=== PATIENT | male | born 1950 | race Caucasian/White ===

== ENCOUNTER 2019-05-07 11:50 | Inpatient (IN) ==
[2019-05-07 14:47] VITALS: BMI 31.8
[2019-05-07] MEDS ORDERED: AFLURIA II4 or FLUARIX II4 IM ONE (14:47)
[2019-05-07 14:57] LABS: BASOPHILS # (AUTO) 0.1 X10^3/uL (0.0-0.1); BASOPHILS % (AUTO) 1.3 % (0.2-1.0); EOSINOPHILS # (AUTO) 0.1 x10^3/uL (0.0-0.2); HEMATOCRIT 45.6 % (42.0-54.0); HEMOGLOBIN 16.1 g/dL (13.5-18.0); LYMPHOCYTES # (AUTO) 1.8 X10^3/uL (1.3-2.9); LYMPHOCYTES % (AUTO) 29.9 % (21.0-51.0); MEAN CORPUSCULAR HEMOGLOBIN 30.8 pg (27.0-34.0); MEAN CORPUSCULAR HGB CONC 35.3 g/dL (33.0-35.0); MEAN CORPUSCULAR VOLUME 87.4 fL (80.0-100.0); MONOCYTES # (AUTO) 0.4 x10^3/uL (0.3-0.8); MONOCYTES % (AUTO) 6.3 % (0.0-13.0); NEUTROPHILS # (AUTO) 3.6 x10^3/uL (2.2-4.8); NEUTROPHILS % (AUTO) 60.5 % (42.0-75.0); PLATELET COUNT 189 X10^3/uL (150.0-450.0); RED BLOOD COUNT 5.22 X10^6/uL (4.7-6.0); RED CELL DISTRIBUTION WIDTH 13.8 % (11.6-16.5); WHITE BLOOD COUNT 5.9 X10^3/uL (3.6-10.0)
[2019-05-07] MEDS ORDERED: CATAPRES-TTS-2 TD SCH (15:00)
[2019-05-07 15:17] LABS: ALBUMIN 3.6 g/dL (3.4-5.0); ALKALINE PHOSPHATASE 110 Units/L (46-116); BLOOD UREA NITROGEN 11 mg/dL (7-18); CALCIUM 8.7 mg/dL (8.5-10.1); CARBON DIOXIDE 31.2 mmol/L (21-32); CHLORIDE 100 mmol/L (98-107); CKMB % 1.8 % (<4); COR NA(FOR HYPERGLY) 140 mmol/L (136-145); CREATINE KINASE 62 Units/L (39-308); CREATINE KINASE MB 1.1 ng/mL (0-4.0); SODIUM 138 mmol/L (136-145); TOTAL PROTEIN 7.4 g/dL (6.4-8.2); TROPONIN I < 0.02 ng/mL (0-1.5); eGFR NON BLACK RACES > 60 (>60)
--- NOTE | 2019-05-07 15:33 | CT ---
History: Left arm weakness and confusion and hypertension Study: CT head without contrast. Sagittal and coronal reformations were provided. Dose reduction techniques were utilized. Comparison: None Findings: The ventricles and sulci are prominent without mass effect. There is decreased attenuation at the base of the left frontal lobe. There is no hemorrhage or mass. There is no subdural collection of fluid. The calvarium is intact. The paranasal sinuses are clear. 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
--- NOTE | 2019-05-07 15:34 | RAD ---
History: New inset of hypertension with left arm weakness and confusion Study: Portable AP chest Comparison: None Findings: The lungs are clear and the heart and mediastinum are unremarkable. There is no edema or effusion or congestion. impression: No evidence for acute cardiopulmonary disease Reported By:
[2019-05-07 16:26] LABS: ALANINE AMINOTRANSFERASE 28 Units/L (12-78); ASPARTATE AMINO TRANSFERASE 20 Units/L (15-37)
[2019-05-07] MEDS ORDERED: NORMODYNE INJ 20 MG VIAL IVP PRN (18:14)
[2019-05-07] MEDS ORDERED: NORMODYNE INJ 100 MG VIAL ONE (18:29)
[2019-05-07] MEDS ORDERED: RESTORIL CAP 15 MG PO PRN (18:31)
[2019-05-07 18:58] LABS: CKMB % 1.9 % (<4); CREATINE KINASE 58 Units/L (39-308); CREATINE KINASE MB 1.1 ng/mL (0-4.0); TROPONIN I < 0.02 ng/mL (0-1.5)
[2019-05-07] MEDS ORDERED: MICRO K EXTEN CAP 10 MEQ PO ONE (20:00)
[2019-05-07] MEDS: LOPRESSOR TAB 25 MG PO SCH (20:02)
[2019-05-07] MEDS: NORVASC TAB 5 MG PO SCH (20:02)
[2019-05-07 22:17] LABS: CKMB % 1.8 % (<4); CREATINE KINASE 56 Units/L (39-308); CREATINE KINASE MB < 1.0 ng/mL (0-4.0); TROPONIN I < 0.02 ng/mL (0-1.5)
[2019-05-08 06:18] LABS: BASOPHILS # (AUTO) 0.1 X10^3/uL (0.0-0.1); BASOPHILS % (AUTO) 0.9 % (0.2-1.0); EOSINOPHILS # (AUTO) 0.2 x10^3/uL (0.0-0.2); EOSINOPHILS % (AUTO) 2.9 % (0.9-2.9); HEMATOCRIT 43.2 % (42.0-54.0); HEMOGLOBIN 14.9 g/dL (13.5-18.0); LYMPHOCYTES # (AUTO) 1.2 X10^3/uL (1.3-2.9); LYMPHOCYTES % (AUTO) 19.7 % (21.0-51.0); MEAN CORPUSCULAR HEMOGLOBIN 30.1 pg (27.0-34.0); MEAN CORPUSCULAR HGB CONC 34.6 g/dL (33.0-35.0); MEAN PLATELET VOLUME 8.4 fL (7.4-11.0); MONOCYTES # (AUTO) 0.5 x10^3/uL (0.3-0.8); MONOCYTES % (AUTO) 8.1 % (0.0-13.0); NEUTROPHILS # (AUTO) 4.1 x10^3/uL (2.2-4.8); NEUTROPHILS % (AUTO) 68.4 % (42.0-75.0); PLATELET COUNT 170 X10^3/uL (150.0-450.0); RED BLOOD COUNT 4.96 X10^6/uL (4.7-6.0); RED CELL DISTRIBUTION WIDTH 14.1 % (11.6-16.5)
[2019-05-08 06:33] LABS: ALANINE AMINOTRANSFERASE 23 Units/L (12-78); ALBUMIN 3.3 g/dL (3.4-5.0); ALKALINE PHOSPHATASE 102 Units/L (46-116); ASPARTATE AMINO TRANSFERASE 14 Units/L (15-37); BLOOD UREA NITROGEN 9 mg/dL (7-18); CALCIUM 8.7 mg/dL (8.5-10.1); CARBON DIOXIDE 27.7 mmol/L (21-32); CHLORIDE 103 mmol/L (98-107); COR CA(FOR HYPOALB) 9.3 mg/dL (8.5-10.1); COR NA(FOR HYPERGLY) 141 mmol/L (136-145); CREATININE 0.93 mg/dL (0.70-1.30); SODIUM 139 mmol/L (136-145); TOTAL PROTEIN 6.7 g/dL (6.4-8.2); eGFR NON BLACK RACES > 60 (>60)
[2019-05-08] MEDS ORDERED: K-RIDER 10 MEQ/NS 100 ML 10 MEQ/100 ML BAG IV PRN (06:53)
[2019-05-08] MEDS ORDERED: POTASSIUM CHL 40 MEQ/NS 0.45% 500 ML IV PRN (06:53)
[2019-05-08] MEDS ORDERED: KLOR-CON PO PRN (06:53)
[2019-05-08] MEDS ORDERED: MICRO K EXTEN CAP 10 MEQ PO PRN (06:53)
[2019-05-08] MEDS ORDERED: POTASSIUM CHLORIDE LIQ 20 MEQ UDC PO PRN (06:53)
[2019-05-08] MEDS ORDERED: POTASSIUM CHL 60 MEQ/NS 0.45% 500 ML IV PRN (06:53)
[2019-05-08] MEDS ORDERED: K-DUR TAB 20 MEQ PO PRN (06:53)
[2019-05-08] MEDS ORDERED: PHARMACY CONSULT - DOSE _____ XX SCH (08:00)
[2019-05-08] MEDS: NORVASC TAB 5 MG PO SCH (08:09)
[2019-05-08] MEDS: LOPRESSOR TAB 25 MG PO SCH ×2 (08:13→20:59)
[2019-05-08] MEDS: LOVENOX INJ 40 MG SYR SC SCH (10:40)
[2019-05-08] MEDS: ECOTRIN TAB 325 MG PO SCH (10:50)
[2019-05-08] MEDS ORDERED: NORVASC TAB 5 MG PO NR (11:00)
--- NOTE | 2019-05-08 15:56 | MRI ---
MRI OF THE BRAIN WITHOUT IV CONTRAST CLINICAL INDICATION: Left arm weakness. TECHNIQUE: Pre-contrast T1-w, T2, and diffusion-w sequences of the brain with ADC maps. COMPARISON: Head CT 05/07/2019 FINDINGS: Restricted diffusion can be seen along the lateral cortex of the left temporal lobe on series 502, image 18. There is T2 signal and edema along the underside of the left temporal lobe as well. This region does appear to have some associated T2-1 hyperintensity along the sulci and gyri. There is associated high T2 signal. Diffuse patchy and confluent periventricular and subcortical T2/FLAIR signal with associated volume loss. Age-related, ex-vacuo dilatation of the ventricles and sulci. There are normal signal voids in the larger intracranial vessels. The paranasal sinuses and mastoid air cells are predominantly clear. The marrow signal pattern is within normal limits. IMPRESSION: 1. Late acute ischemia along the lateral cortex of the left temporal lobe. 2. Abnormal T1 and T2 signal within the inferior left temporal lobe without restricted diffusion. 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 It should be noted that neither of these findings would account for patient's reported left-sided arm weakness. Correlate with physical examination. Reported By:
--- NOTE | 2019-05-08 19:26 | VAS ---
CAROTID ULTRASOUND CLINICAL INDICATION: Weakness and facial numbness PROCEDURE: Pulsed wave and color-flow duplex imaging was utilized to evaluate the extracranial carotid arteries. COMPARISON: None FINDINGS: Right carotid: Plaque at the bifurcation. No hemodynamically significant stenosis involving the right carotid artery. The velocities are as follows: Distal CCA peak systolic velocity 75 cm/sec, ICA peak systolic velocity 52 cm/sec. Flow within the right vertebral and right ECA is directed antegrade. ICA/CCA ratio: 0.6 Left carotid: Plaque at the bifurcation. No hemodynamically significant stenosis involving the left carotid artery. The velocities are as follows: Distal CCA peak systolic velocity 78 cm/sec, ICA peak systolic velocity 90 cm/sec. Flow within the left vertebral and left ECA is directed antegrade. ICA/CCA ratio: 1.1 IMPRESSION: 1. No hemodynamically significant stenosis involving either the right or left ICA. 2. Normal peak systolic velocity corresponds to a less than 50% diameter stenosis of the right ICA. 3. Normal peak systolic velocity corresponds to a less than 50% diameter stenosis of the left ICA. Reported By:
[2019-05-08] MEDS: CRESTOR TAB 10 MG PO SCH (20:59)
[2019-05-09 06:16] LABS: BASOPHILS % (AUTO) 0.9 % (0.2-1.0); EOSINOPHILS # (AUTO) 0.2 x10^3/uL (0.0-0.2); HEMATOCRIT 43.9 % (42.0-54.0); HEMOGLOBIN 15.3 g/dL (13.5-18.0); LYMPHOCYTES # (AUTO) 1.7 X10^3/uL (1.3-2.9); LYMPHOCYTES % (AUTO) 40.2 % (21.0-51.0); MEAN CORPUSCULAR HEMOGLOBIN 30.3 pg (27.0-34.0); MEAN CORPUSCULAR HGB CONC 34.8 g/dL (33.0-35.0); MEAN CORPUSCULAR VOLUME 87.1 fL (80.0-100.0); MEAN PLATELET VOLUME 8.5 fL (7.4-11.0); MONOCYTES # (AUTO) 0.4 x10^3/uL (0.3-0.8); MONOCYTES % (AUTO) 9.6 % (0.0-13.0); NEUTROPHILS # (AUTO) 1.8 x10^3/uL (2.2-4.8); NEUTROPHILS % (AUTO) 43.3 % (42.0-75.0); PLATELET COUNT 179 X10^3/uL (150.0-450.0); RED BLOOD COUNT 5.05 X10^6/uL (4.7-6.0); RED CELL DISTRIBUTION WIDTH 13.8 % (11.6-16.5); WHITE BLOOD COUNT 4.1 X10^3/uL (3.6-10.0)
[2019-05-09 07:06] LABS: ALANINE AMINOTRANSFERASE 22 Units/L (12-78); ALBUMIN 3.3 g/dL (3.4-5.0); ALKALINE PHOSPHATASE 101 Units/L (46-116); ASPARTATE AMINO TRANSFERASE 12 Units/L (15-37); BLOOD UREA NITROGEN 10 mg/dL (7-18); CARBON DIOXIDE 29.2 mmol/L (21-32); CHOL/HDL RATIO 6.9 (0.0-5.0); CHOLESTEROL 248 mg/dL (0-200); HDL CHOLESTEROL 36 mg/dL (40-60); TRIGLYCERIDES 292 mg/dL (0-150)
[2019-05-09 07:41] LABS: CALCIUM 9.2 mg/dL (8.5-10.1); CHLORIDE 101 mmol/L (98-107); COR CA(FOR HYPOALB) 9.8 mg/dL (8.5-10.1); COR NA(FOR HYPERGLY) 140 mmol/L (136-145); CREATININE 0.89 mg/dL (0.70-1.30); SODIUM 138 mmol/L (136-145); eGFR NON BLACK RACES > 60 (>60)
[2019-05-09] MEDS: LOPRESSOR TAB 25 MG PO SCH ×2 (09:36→20:18)
[2019-05-09] MEDS: ECOTRIN TAB 325 MG PO SCH (09:36)
[2019-05-09] MEDS: NORVASC TAB 10 MG PO SCH (09:36)
[2019-05-09] MEDS: LOVENOX INJ 40 MG SYR SC SCH (09:37)
--- NOTE | 2019-05-09 11:11 | PCM.PROG ---
Progress Note - Progress Note for Day of Date of Exam: 05/08/19 - Subjective Subjective: WS ADMITTED FOR MALIGNANT HTN, FACIAL WEAKNESS, RULE OUT CVA. TODAY, HE IS ALERT AND ORIENTED, LYING IN BED ON MORNING ROUNDS. HE CONTINUES WITH COMPLAINTS OF GENERALIZED WEAKNESS. ON EXAMINATION, HEART IS REGULAR IN RATE AND RHYTHM. BILATERAL LUNGS ARE NOTED WITH DIMINISHED LUNG SO UNDS THROUGHOUT. ABDOMEN IS ROUND, SOFT, AND NON-TENDER WITH NORMAL BOWEL SOUNDS NOTED IN ALL QUADRANTS. HIS VITALS THIS MORNING ARE: 98.4-71-17-100%-146/70. LABS WERE OBTAINED. ABNORMAL LAB VALUES INCLUDE THE FOLLOWING: POTASSIUM 3.4, GLUCOSE 190, AST 14, ALBUMIN 3.3. CARDIAC ENZYMES WITHIN NORMAL LIMITS. 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 TODAY, WE WILL OBTAIN A BRAIN MRI, ECHO, CAROTID DOPPLER, AND CHECK AN A1C LEVEL. WE WILL START ECOTRIN 325MG PO DAILY, CRESTOR 10MG PO HS, INCREASE NORVASC TO 10MG PO DAILY, CONTINUE WITH CATAPRES PATCH AND METOPROLOL. OTHERWISE, WE PLAN TO FOLLOW UP WITH AM LABS AND CONTINUE TO MONITOR. - Past Medical Family Social History Past Med/Fam/Surg Hx: No changes since H&P Allergies: Allergies No Known Drug Allergies Allergy (Verified 05/07/19 14:19) - Review of Systems ROS: No change since H&P - Vital Signs and I&O's Vital Signs: Temperature 97.8 F Pulse Rate [Left Apical] 60 Respiratory Rate 13 Blood Pressure [Left Arm] 135/69 O2 Sat by Pulse Oximetry 99 Intake and Output: Intake & Output 05/06/19 05/07/19 05/08/19 05/09/19 11:59 11:59 11:59 11:59 Intake Total 870 / 870 1250 / 1250 Output Total 1200 / 1200 1800 / 1800 Balance -330 / -330 -550 / -550 - Physical Exam Oriented: Normal Eyes: Normal Ear: Normal Nose: Normal Throat: Normal Respiratory: Generalized, Diminished Cardiovascular: Normal. negative: S3, S4, Murmur : Normal Auscultation: Bowel Sounds: Normal Palpation: Normal Tenderness: Normal Skin: Normal Musculoskeletal: Normal Psychiatric: Normal Mood Description: Calm Affect: Normal Speech Pattern: Clear, Appropriate - Laboratory and Diagnostics Result Diagrams: 05/09/19 04:55 05/09/19 04:55 Labs: Laboratory WBC 4.1 X10^3/uL (3.6-10.0) 05/09/19 04:55 RBC 5.05 X10^6/uL (4.7-6.0) 05/09/19 04:55 Hgb 15.3 g/dL (13.5-18.0) 05/09/19 04:55 Hct 43.9 % (42.0-54.0) 05/09/19 04:55 MCV 87.1 fL (80.0-100.0) 05/09/19 04:55 MCH 30.3 pg (27.0-34.0) 05/09/19 04:55 MCHC 34.8 g/dL (33.0-35.0) 05/09/19 04:55 RDW 13.8 % (11.6-16.5) 05/09/19 04:55 Plt Count 179 X10^3/uL (150.0-450.0) 05/09/19 04:55 MPV 8.5 fL (7.4-11.0) 05/09/19 04:55 Neut % (Auto) 43.3 % (42.0-75.0) 05/09/19 04:55 Lymph % (Auto) 40.2 % (21.0-51.0) 05/09/19 04:55 [place] % (Auto) 9.6 % (0.0-13.0) 05/09/19 04:55 Eos % (Auto) 6.0 % (0.9-2.9) H 05/09/19 04:55 Baso % (Auto) 0.9 % (0.2-1.0) 05/09/19 04:55 Neut # (Auto) 1.8 x10^3/uL (2.2-4.8) L 05/09/19 04:55 Lymph # (Auto) 1.7 X10^3/uL (1.3-2.9) 05/09/19 04:55 [place] # (Auto) 0.4 x10^3/uL (0.3-0.8) 05/09/19 04:55 Eos # (Auto) 0.2 x10^3/uL (0.0-0.2) 05/09/19 04:55 Baso # (Auto) 0.0 X10^3/uL (0.0-0.1) 05/09/19 04:55 Absolute Nucleated RBC 0.1 /100WBC 05/09/19 04:55 Sodium 138 mmol/L (136-145) 05/09/19 04:55 Corrected Sodium 140 mmol/L (136-145) 05/09/19 04:55 Potassium 4.2 mmol/L (3.5-5.1) 05/09/19 04:55 Chloride 101 mmol/L (98-107) 05/09/19 04:55 Carbon Dioxide 29.2 mmol/L (21-32) 05/09/19 04:55 BUN 10 mg/dL (7-18) 05/09/19 04:55 Creatinine 0.89 mg/dL (0.70-1.30) 05/09/19 04:55 Est GFR (MDRD) Af Amer > 60 (>60) 05/09/19 04:55 Est GFR (MDRD) Non-Af > 60 (>60) 05/09/19 04:55 Glucose 183 mg/dL (65-99) H 05/09/19 04:55 Hemoglobin A1c 9.2 % 05/08/19 05:23 Calcium 9.2 mg/dL (8.5-10.1) 05/09/19 04:55 Corrected Calcium 9.8 mg/dL (8.5-10.1) 05/09/19 04:55 Magnesium 2.0 mg/dL (1.7-2.9) 05/07/19 18:28 Total Bilirubin 0.30 mg/dL (0.2-1.0) 05/09/19 04:55 AST 12 Units/L (15-37) L 05/09/19 04:55 ALT 22 Units/L (12-78) 05/09/19 04:55 Alkaline Phosphatase 101 Units/L (46-116) 05/09/19 04:55 Creatine Kinase 56 Units/L (39-308) 05/07/19 21:50 CK-MB (CK-2) < 1.0 ng/mL (0-4.0) 05/07/19 21:50 CK/CKMB % Calc 1.8 % (<4) 05/07/19 21:50 Troponin I < 0.02 ng/mL (0-1.5) 05/07/19 21:50 Total Protein 7.0 g/dL (6.4-8.2) 05/09/19 04:55 Albumin 3.3 g/dL (3.4-5.0) L 05/09/19 04:55 Globulin 3.7 g/dL (2.5-4.5) 05/09/19 04:55 Albumin/Globulin Ratio 0.9 Ratio (1.1-2.1) L 05/09/19 04:55 Triglycerides 292 mg/dL (0-150) H 05/09/19 04:55 Cholesterol 248 mg/dL (0-200) H 05/09/19 04:55 LDL Cholesterol, Calc 154 mg/dL (0-100) H 05/09/19 04:55 HDL Cholesterol 36 mg/dL (40-60) L 05/09/19 04:55 Cholesterol/HDL Ratio 6.9 (0.0-5.0) H 05/09/19 04:55 - Plan (1) CVA (cerebral vascular accident) Status: Acute Qualifiers: CVA mechanism: unspecified Qualified Code(s): I63.9 - Cerebral infarction, unspecified Plan: OBTAIN BRAIN MRI, ECHO, CAROTID DOPPLER, ASA 325MG PO DAILY, CRESTOR 10MG PO HS, CONTINUE TO MONITOR (2) Generalized weakness Status: Acute (3) Hypertension Status: Acute Qualifiers: Hypertension type: essential hypertension Qualified Code(s): I10 - Essential (primary) hypertension Plan: NORVASC 10MG PO DAILY, METOPROLOL 25MG PO BID, CATAPRES PATCH, CONTINUE TO MONITOR (4) Facial weakness Status: Acute (5) Diabetes mellitus Status: Acute Qualifiers: Diabetes mellitus type: type 2 Diabetes mellitus longterm insulin use: w [facility] terminal block assembler use Diabetes mellitus complication status: without compl ication Qualified Code(s): E11.9 - Type 2 diabetes mellitus without compl ications Plan: MONITOR OTBS
[2019-05-09] MEDS ORDERED: SNACK - Diabetic Appropriate PO SCH (20:00)
[2019-05-09] MEDS: CRESTOR TAB 10 MG PO SCH (20:17)
[2019-05-09] MEDS: HumuLIN R SC PRN (20:58)
[2019-05-10 05:22] LABS: BASOPHILS % (AUTO) 0.8 % (0.2-1.0); EOSINOPHILS # (AUTO) 0.2 x10^3/uL (0.0-0.2); EOSINOPHILS % (AUTO) 4.1 % (0.9-2.9); HEMATOCRIT 42.2 % (42.0-54.0); HEMOGLOBIN 14.8 g/dL (13.5-18.0); LYMPHOCYTES # (AUTO) 1.6 X10^3/uL (1.3-2.9); LYMPHOCYTES % (AUTO) 31.2 % (21.0-51.0); MEAN CORPUSCULAR HEMOGLOBIN 30.2 pg (27.0-34.0); MEAN CORPUSCULAR VOLUME 86.4 fL (80.0-100.0); MEAN PLATELET VOLUME 8.5 fL (7.4-11.0); MONOCYTES # (AUTO) 0.6 x10^3/uL (0.3-0.8); MONOCYTES % (AUTO) 10.9 % (0.0-13.0); NEUTROPHILS # (AUTO) 2.7 x10^3/uL (2.2-4.8); PLATELET COUNT 173 X10^3/uL (150.0-450.0); RED BLOOD COUNT 4.88 X10^6/uL (4.7-6.0); RED CELL DISTRIBUTION WIDTH 13.8 % (11.6-16.5); WHITE BLOOD COUNT 5.2 X10^3/uL (3.6-10.0)
[2019-05-10] MEDS: HumuLIN R SC PRN (05:39)
[2019-05-10 05:40] LABS: ALANINE AMINOTRANSFERASE 19 Units/L (12-78); ALBUMIN 3.1 g/dL (3.4-5.0); ALKALINE PHOSPHATASE 97 Units/L (46-116); ASPARTATE AMINO TRANSFERASE 12 Units/L (15-37); BLOOD UREA NITROGEN 17 mg/dL (7-18); CALCIUM 8.9 mg/dL (8.5-10.1); CARBON DIOXIDE 23.7 mmol/L (21-32); CHLORIDE 100 mmol/L (98-107); COR CA(FOR HYPOALB) 9.6 mg/dL (8.5-10.1); COR NA(FOR HYPERGLY) 137 mmol/L (136-145); CREATININE 0.99 mg/dL (0.70-1.30); SODIUM 135 mmol/L (136-145); TOTAL PROTEIN 6.8 g/dL (6.4-8.2); eGFR NON BLACK RACES > 60 (>60)
[2019-05-10] MEDS ORDERED: GLUCOTROL XL PO SCH (07:00)
[2019-05-10] MEDS: NORVASC TAB 10 MG PO SCH (08:51)
[2019-05-10] MEDS: ECOTRIN TAB 325 MG PO SCH (08:51)
[2019-05-10] MEDS: LOVENOX INJ 40 MG SYR SC SCH (08:51)
[2019-05-10] MEDS: LOPRESSOR TAB 25 MG PO SCH (08:51)
[2019-05-10 10:27] VITALS: BP 125/67
== END 2019-05-10 11:00 | disposition home or self-care (01) | DRG 66 ==
LOC: ICU
PROVIDERS: ADMIT Internal Medicine; ATTEND Internal Medicine
DX: R29.810 Facial weakness; E11.9 Type 2 diabetes mellitus without complications; R26.9 Unspecified abnormalities of gait and mobility; I10 Essential (primary) hypertension; I63.9 Cerebral infarction, unspecified; R48.8 Other symbolic dysfunctions
CPT/HCPCS: 36415; 70450; 70551; 71010; 71045; 80053; 80061; 82550; 82553; 83036; 83735; 84484; 85025; 90674; 90686; 92507; 92523; 93005; 93306; 93880; 97110; 97116; 97162; 97165; A4216; A4222; G0378; J1650; J1815; J3490

== ENCOUNTER 2020-10-12 19:15 | Inpatient (IN) ==
[2020-10-12 19:32] VITALS: BMI 31.5
[2020-10-12] MEDS ORDERED: LASIX IVP STA (21:27)
[2020-10-12] MEDS ORDERED: LASIX ONE (21:28)
--- NOTE | 2020-10-12 21:46 | DR.EXTPAIN ---
HPI Time seen Time Seen by Provider: 10/12/20 21:26 PCP Primary Care Physician: CASSY NAJERA HPI Comment HPI Comment: PATIENT COMPLAINS OF DYSPNEA, MARKED SWELLING IN LEGS FOR 1 WEEK. HAS ASSOCIATED 2 PILLOW ORTHOPNEA, MARKED EXERTIONAL DYSPNEA, DENIES FEVER, COUGH, ARTHRALGIAS AND CHEST PAIN. Complaint/Symptoms Chief Complaint Doctor Comments: SHORTNESS OF BREATH X 1 WEEK Chief Complaint:: PT WENT TO SEE CASSY DANIA IN [place] WITH C/O NO ENERGY, SORE THROAT, SHORTNESS OF BREATH. LABS COLLECTED THIS AM. PT WAS CALLED BACK AROUND 6PM AND ASKED TO COME TO THE HOSPITAL. COVID-19 Coronavirus risk:travel/contact w/high risk person: No Has patient experienced Coronavirus symptoms: No Coronavirus symptoms experienced: Shortness of Breath Nurses notes reviewed Nurses Notes Review: Yes Source History Provided: Patient Mode of arrival Mode of Arrival: Ambulatory Timing Onset of Chief Complaint: 10/09/20 Context History of: None Associated signs and symptoms Associated Signs and Symptoms: Swelling (IN LEGS, WEIGHT GAIN) PMH PMH Past Medical History: Yes Past Medical History: Diabetes, Dyslipidemia and Hypertension Past Surgical History: No Family History History of Family Medical Conditions: Yes Family Medical History: Diabetes Mellitus, [place], Coronary Artery Disease and Hypertension Social History Does patient currently use any type of tobacco product: No Have you used tobacco products in the last 12 months: No Type of Tobacco Use: None Does any household member use tobacco: No Do you use any recreational Drugs:: No Lives With: Alone Lives Where: Home Travel Risk Coronavirus risk:travel/contact w/high risk person: No Has patient experienced Coronavirus symptoms: No Coronavirus symptoms experienced: Shortness of Breath Infectious screening In the last 2 months have you had wt loss of >10#?: NO Have you had fever, night sweats or hemotysis?: No Have you traveled outside the country in the last 6 months?: No Isolation: Standard ROS Review of Systems Constitutional: No Symptoms Reported Eyes: No Symptoms Reported ENTM: No Symptoms Reported Respiratoy: See HPI, Orthopnea and Short of Breath Cardiovascular: See HPI and Edema Gastrointestinal/Abdominal: No Symptoms Reported Genitourinary: No Symptoms Reported Neurological: No Symptoms Reported Musculoskeletal: No Symptoms Reported Integumentary: No Symptoms Reported Hematologic/Lymphatic: No Symptoms Reported Endocrine: No Symptoms Reported Psychiatric: No Symptoms Reported All Other Systems: Reviewed and Negative PE Vital Signs Vitals: Temperature 97.7 F Pulse Rate 92 Respiratory Rate 51 Blood Pressure [Left Arm] 179/89 Blood Pressure 146/68 O2 Sat by Pulse Oximetry 99 General Limitations: No Limitations General Appearance: Alert and In No Apparent Distress Head Head Exam: Normal Inspection Eyes Eye exam: Normal Appearance, PERRL and EOMI ENT ENT Exam: Normal Exam and Normal Oropharynx Neck Neck Exam: Other (JVD AT 40 DEGREES ANGLE OF MANDIBLE) Chest Chest Inspection: Normal Inspection Respiratory Respiratory Exam: Other (BASILAR CRACKLES, MARKED DECREASED BS RIGHT BASE) Respiratory Exam: Left: Clear to Auscultation and Right: Decreased Breath Sounds and Right: Dullness on Percussion Cardiovascular Cardiovascular Exam: Regular Rate and Normal Rhythm Abdominal Exam Abdominal Exam: Normal Inspection, Normal Bowel Sounds and Soft Extremities Extremities Exam: Edema (2+ PITTING EDEMA FEET TO KNEES BILAT) Back Back Exam: Normal Inspection Neurological Neurological Exam: Alert, Oriented X3 and CN II-XII Intact Psychiatric Psychiatric Exam: Normal Affect and Normal Mood Skin Skin Exam: Warm, Dry, Intact and Normal Color MDM Differential Diagnosis Differential Diagnosis: Other (ACUTE CONGESTIVE HEART FAILURE,) COURSE Treatment Treatment: IV LASIX 60MG WITH DIURESIS OF 400ML URINE Reevaluation 1st: Improved (PATIENT STATES HIS BREATHING IS BETTER) ROR Labs Reviewed Laboratory Results Reviewed?: Yes Result Diagrams: 10/12/20 21:46 10/12/20 21:46 Laboratory: WBC 7.1 X10^3/uL (3.6-10.0) 10/12/20 21:46 RBC 4.63 X10^6/uL (4.7-6.0) L 10/12/20 21:46 Hgb 13.4 g/dL (13.5-18.0) L 10/12/20 21:46 Hct 39.4 % (42.0-54.0) L 10/12/20 21:46 MCV 85.1 fL (80.0-100.0) 10/12/20 21:46 MCH 28.9 pg (27.0-34.0) 10/12/20 21:46 MCHC 34.0 g/dL (33.0-35.0) 10/12/20 21:46 RDW 14.0 % (11.6-16.5) 10/12/20 21:46 Plt Count 302 X10^3/uL (150.0-450.0) 10/12/20 21:46 MPV 8.3 fL (7.4-11.0) 10/12/20 21:46 Neut % (Auto) 59.0 % (42.0-75.0) 10/12/20 21:46 Lymph % (Auto) 27.9 % (21.0-51.0) 10/12/20 21:46 [place] % (Auto) 9.7 % (0.0-13.0) 10/12/20 21:46 Eos % (Auto) 2.1 % (0.9-2.9) 10/12/20 21:46 Baso % (Auto) 1.3 % (0.2-1.0) H 10/12/20 21:46 Neut # (Auto) 4.2 x10^3/uL (2.2-4.8) 10/12/20 21:46 Lymph # (Auto) 2.0 X10^3/uL (1.3-2.9) 10/12/20 21:46 [place] # (Auto) 0.7 x10^3/uL (0.3-0.8) 10/12/20 21:46 Eos # (Auto) 0.1 x10^3/uL (0.0-0.2) 10/12/20 21:46 Baso # (Auto) 0.1 X10^3/uL (0.0-0.1) 10/12/20 21:46 Absolute Nucleated RBC 0.1 /100WBC 10/12/20 21:46 PT 13.7 SECONDS (11.8-14.3) 10/12/20 21:46 INR Target Range - 10/12/20 21:46 INR 1.08 (0.8-1.3) 10/12/20 21:46 Sodium 137 mmol/L (136-145) 10/12/20 21:46 Corrected Sodium 138 mmol/L (136-145) 10/12/20 21:46 Potassium 3.2 mmol/L (3.5-5.1) L 10/12/20 21:46 Chloride 101 mmol/L (98-107) 10/12/20 21:46 Carbon Dioxide 24.8 mmol/L (21-32) 10/12/20 21:46 BUN 26 mg/dL (7-18) H 10/12/20 21:46 Creatinine 1.59 mg/dL (0.70-1.30) H 10/12/20 21:46 Est GFR (MDRD) Af Amer 56 (>60) L 10/12/20 21:46 Est GFR (MDRD) Non-Af 46 (>60) L 10/12/20 21:46 Glucose 147 mg/dL (65-99) H 10/12/20 21:46 Calcium 9.8 mg/dL (8.5-10.1) 10/12/20 21:46 Corrected Calcium TNP 10/12/20 21:46 Total Bilirubin 0.60 mg/dL (0.2-1.0) 10/12/20 21:46 AST 17 Units/L (15-37) 10/12/20 21:46 ALT 21 Units/L (12-78) 10/12/20 21:46 Alkaline Phosphatase 123 Units/L (46-116) H 10/12/20 21:46 Troponin I < 0.02 ng/mL (0-1.5) 10/12/20 21:46 B-Natriuretic Peptide 227 pg/mL (0-79) H 10/12/20 21:46 Total Protein 8.5 g/dL (6.4-8.2) H 10/12/20 21:46 Albumin 4.1 g/dL (3.4-5.0) 10/12/20 21:46 Globulin 4.4 g/dL (2.5-4.5) 10/12/20 21:46 Albumin/Globulin Ratio 0.9 Ratio (1.1-2.1) L 10/12/20 21:46 SARS-CoV-2 (PCR) Negative (NEGATIVE) 10/12/20 22:44 Influenza Type A (PCR) Negative (NEGATIVE) 10/12/20 22:44 Influenza Type B (PCR) Negative (NEGATIVE) 10/12/20 22:44 RSV (PCR) Negative (NEGATIVE) 10/12/20 22:44 XRAY XRAY Interpreted by: Radiologist ( THE CTA CHEST CONSISTENT WITH NO PULMONARY EMBOLISM OR AORTIC DISSECTION, MODERATE BILATERAL PLEURAL EFFUSIONS WITH COMPRESSIVE ATELECTASIS WITH NO PULMONARY CONSOLIDATION) X-ray Results: PORTABLE CHEST XRAY CONSISTENT WITH MODERATE RIGHT PLEURAL EFFUSION, NO CONGESTIVE HEART FAILURE EKG Rate: 85 Rhythm: NSR Block: None Hypertrophy: None ST: Normal and Nonsp Opioid Opioid Risk Tool Age (Meño box if 16-45): No History of Preadolescent Sexual Abuse: No Total: 0 Total Score Risk Category: Low Risk Copyright: [employer] TOTH predicting aberrant behaviors Diagnosis Discharge Problem: Acute dyspnea, Acute right-sided heart failure, Pleural effusion on right
[2020-10-12 22:01] LABS: BASOPHILS # (AUTO) 0.1 X10^3/uL (0.0-0.1); BASOPHILS % (AUTO) 1.3 % (0.2-1.0); EOSINOPHILS # (AUTO) 0.1 x10^3/uL (0.0-0.2); EOSINOPHILS % (AUTO) 2.1 % (0.9-2.9); HEMATOCRIT 39.4 % (42.0-54.0); HEMOGLOBIN 13.4 g/dL (13.5-18.0); LYMPHOCYTES % (AUTO) 27.9 % (21.0-51.0); MEAN CORPUSCULAR HEMOGLOBIN 28.9 pg (27.0-34.0); MEAN CORPUSCULAR VOLUME 85.1 fL (80.0-100.0); MEAN PLATELET VOLUME 8.3 fL (7.4-11.0); MONOCYTES # (AUTO) 0.7 x10^3/uL (0.3-0.8); MONOCYTES % (AUTO) 9.7 % (0.0-13.0); NEUTROPHILS # (AUTO) 4.2 x10^3/uL (2.2-4.8); PLATELET COUNT 302 X10^3/uL (150.0-450.0); RED BLOOD COUNT 4.63 X10^6/uL (4.7-6.0); WHITE BLOOD COUNT 7.1 X10^3/uL (3.6-10.0)
[2020-10-12 22:16] LABS: ALANINE AMINOTRANSFERASE 21 Units/L (12-78); ALBUMIN 4.1 g/dL (3.4-5.0); ALKALINE PHOSPHATASE 123 Units/L (46-116); ASPARTATE AMINO TRANSFERASE 17 Units/L (15-37); BLOOD UREA NITROGEN 26 mg/dL (7-18); CALCIUM 9.8 mg/dL (8.5-10.1); CARBON DIOXIDE 24.8 mmol/L (21-32); CHLORIDE 101 mmol/L (98-107); COR NA(FOR HYPERGLY) 138 mmol/L (136-145); CREATININE 1.59 mg/dL (0.70-1.30); SODIUM 137 mmol/L (136-145); TOTAL PROTEIN 8.5 g/dL (6.4-8.2); TROPONIN I < 0.02 ng/mL (0-1.5); eGFR NON BLACK RACES 46 (>60)
[2020-10-13] MEDS ORDERED: K-DUR TAB 20 MEQ PO STA (02:14)
[2020-10-13] MEDS ORDERED: K-DUR TAB 20 MEQ PO ONE ×2 (02:40→08:00)
--- NOTE | 2020-10-13 03:09 | RAD ---
PROCEDURE: Chest X-ray 1 View .HISTORY: PT WENT TO SEE CASSY NAJERA IN [place] WITH C/O NO ENERGY, SORE THROAT, SHORTNESS OF BREATH. LABS COLLECTED THIS AM. PT WAS CALLED BACK AROUND 6PM AND ASKED TO COME TO THE HOSPITAL. .TECHNIQUE: AP view .COMPARISON: 10/12/2020 chest x-ray done at 1:25 p.m..TECHNICAL QUALITY: Satisfactory .FINDINGS:Normal size heart .Mediastinum and hilar regions show no masses or lymphadenopathy .Normal central vascularity .Unchanged right pleural effusion laterally. No pulmonary consolidation, masses, or pneumothorax.No acute bony abnormality .IMPRESSION:1. Unchanged right pleural effusion.2. No other evidence of active disease.Electronically signed by: Lavell Baker (Oct 13, 2020 03:07:29)
--- NOTE | 2020-10-13 03:46 | CT ---
PROCEDURE: CTA Chest .HISTORY: DYSPNEA AND ELEVATED D-DIMER .TECHNIQUE: Axial images were performed through the chest with the administration of IV contrast with multiplanar reformations . 3D and MIPS reconstructions were performed and reviewed. Dose reduction techniques including Automated Exposure Control (AEC) and adjustment of mA and kV were utilized .COMPARISON: None .TECHNICAL QUALITY: Satisfactory .FINDINGS:Normal aorta with no atherosclerosis, aneurysm, or dissection.No evidence of pulmonary embolus.Mediastinum and hilar regions show no masses or lymphadenopathy.Normal size heart with no pericardial fluid.Moderate bilateral pleural effusions with compressive atelectasis lung bases. No pulmonary consolidation or masses.Visualized upper abdomen is unremarkable.No acute bony abnormality.IMPRESSION:1. No pulmonary embolus or aortic dissection.2. Moderate bilateral pleural effusions with compressive atelectasis with no pulmonary consolidation.Electronically signed by: Lavell Baker (Oct 13, 2020 03:44:00)
[2020-10-13] MEDS ORDERED: ASPIRIN ONE (04:53)
[2020-10-13] MEDS: ECOTRIN TAB 325 MG PO SCH (05:06)
[2020-10-13 05:31] LABS: CKMB % 1.7 % (<4); CREATINE KINASE 277 Units/L (39-308); TROPONIN I < 0.02 ng/mL (0-1.5)
[2020-10-13 05:38] LABS: CREATINE KINASE MB 4.6 ng/mL (0-4.0)
[2020-10-13 07:25] LABS: ALANINE AMINOTRANSFERASE 18 Units/L (12-78); ALBUMIN 3.7 g/dL (3.4-5.0); ALKALINE PHOSPHATASE 110 Units/L (46-116); ASPARTATE AMINO TRANSFERASE 21 Units/L (15-37); BLOOD UREA NITROGEN 23 mg/dL (7-18); CALCIUM 9.2 mg/dL (8.5-10.1); CARBON DIOXIDE 21.7 mmol/L (21-32); CHLORIDE 101 mmol/L (98-107); COR NA(FOR HYPERGLY) 139 mmol/L (136-145); CREATININE 1.41 mg/dL (0.70-1.30); SODIUM 137 mmol/L (136-145); TOTAL PROTEIN 7.7 g/dL (6.4-8.2); eGFR NON BLACK RACES 53 (>60)
[2020-10-13] MEDS ORDERED: NORVASC TAB 5 MG ONE (08:00)
[2020-10-13] MEDS ORDERED: LASIX IVP ONE ×2 (08:00→16:47)
[2020-10-13] MEDS ORDERED: LOPRESSOR TAB 50 MG ONE (08:00)
[2020-10-13] MEDS ORDERED: COLACE CAP 100 MG PO ONE (08:01)
[2020-10-13] MEDS: GLUCOTROL XL 24-HR PO SCH (08:25)
[2020-10-13] MEDS: K-DUR TAB 20 MEQ PO SCH ×2 (08:25→20:27)
[2020-10-13] MEDS: LASIX IVP SCH ×2 (08:25→16:51)
[2020-10-13] MEDS: LOPRESSOR TAB 50 MG PO SCH ×2 (08:35→20:27)
[2020-10-13] MEDS: COLACE CAP 100 MG PO SCH (08:36)
[2020-10-13] MEDS: NORVASC TAB 10 MG PO SCH (08:36)
[2020-10-13 11:33] LABS: CKMB % 1.7 % (<4); CREATINE KINASE 326 Units/L (39-308); TROPONIN I < 0.02 ng/mL (0-1.5)
[2020-10-13 11:36] LABS: CREATINE KINASE MB 5.6 ng/mL (0-4.0)
--- NOTE | 2020-10-13 14:40 | DR.H&P ---
H&P - History & Physical for Day of: H&P Date: 10/13/20 - Chief Complaint Chief Complaint: SOB, LOWER EXTREMITY SWELLING, WEAKNESS, SORE THROAT - History of Present Illness History of Present Illness: IS A 70 YEAR OLD PATIENT OF OURS WHO PRESENTED TO THE ER WITH COMPLAINTS OF SHORTNESS OF BREATH, SWELLING TO LOWER EXTREMITIES, SEVERE WEAKNESS, AND SORE THROAT FOR THE PAST WEEK. HE REPORTS BEING UNABLE TO LIE FLAT AND HAVING TO USE TWO PILLOWS AT NIGHT. DYSPNEA IS WORSE WITH EXERTION. HE DOES ADMIT TO CHEST DISCOMFORT AND COUGH AT TIMES, BUT DENIES FEVER. PMH INCLUDES HYPERLIPIDEMIA, HTN, DM II. EXAMINATION REVEALED 1+ PITTING EDEMA TO LOWER EXTREMITIES. DIMINISHED LUNG SOUNDS NOTED TO AUSCULTATION. LABS WERE OBTAINED EARLIER IN THE DAY AND REVEALED THE FOLLOWING ABNORMAL VALUES: HCT 39.7, D-DIMER 1.12, POTASSIUM 3.4, BUN 20, CREATININE 1.36, GLUCOSE 153, ALK PHOS 121, CRP 5.90, TOTAL PROTEIN 8.3, CK-MB 4.6. AN ABG WAS OBTAINED AND REVEALED: PH 7.450, PC02 38, P02 78, HC03 26.4, 02 SAT 96, BASE EXCESS 2.4, A-A GRADIENT -118, FI02 1.0. COVID-19, INFLUENZA, AND RSV NEGATIVE. A CHEST XRAY WAS OBTAINED AND REVEALED: No definite acute infiltrates. Moderate right pleural effusion. EKG REVEALED: SINUS RHYTHM WITH HR 85. A CHEST CTA WAS OBTAINED AND REVEALED: 1. No pulmonary embolus or aortic dissection. 2. Moderate bilateral pleural effusions with compressive atelectasis with no pulmonary consolidation. HE WAS GIVEN LASIX 60MG IV X 1, K-DUR 40MEQ PO X 1, AND NORVASC 5MG PO X 1 IN THE ER. HE REPORTED ONLY SLIGHT IMPROVEMENT IN SYMPTOMS. HE WAS ADMITTED TO THE HOSPITAL FOR FURTHER EVALUATION AND TREATMENT OF ACUTE DYSPNEA AND CHF. HE WAS STARTED ON LASIX 40MG IV BID, OTBS ACHS, AND HIS HOME MEDICATIONS OF ASPIRIN 325MG PO DAILY, COLACE 100MG PO DAILY, ROSUVASTATIN 10MG PO HS, METOPROLOL 50MG PO BID, GLIPIZIDE 2.5MG PO DAILY, AND NORVASC 10MG PO DAILY. WE PLAN TO OBTAIN AN ECHO, CEA LEVEL, PSA LEVEL, AND RESTRICT FLUIDS TO LESS THAN 1 LITER/DAY. OTHERWISE, WE WILL FOLLOW UP WITH AM LABS AND CHEST XRAY AND CONTINUE TO MONITOR. TIME SPENT ON CLINICAL ASSESSMENT, REVIEWING LABS AND IMAGING, DECISION MAKING, AND DOCUMENTATION GREATER THAN 75 MINUTES. - Past Medical History Past Medical History: Hypertension, Dyslipidemia, Diabetes - Family History Family Medical History: Diabetes Mellitus, [place], Coronary Artery Disease, Hypertension - Social History Does patient currently use any type of tobacco product: No Have you used tobacco products in the last 12 months: No Type of Tobacco Use: None Does any household member use tobacco: No Alcohol Use: None Drug Use: None - Medications Home Medications: No Known Drug Allergies Allergy (Verified 05/07/19 14:19) CONTINUE taking the following medications docusate sodium 100 mg PO DAILY 10/13/20 [History] metoprolol tartrate 50 mg PO BID 10/13/20 [History] - Review of Systems Constitutional: Weakness Eyes: No Symptoms Reported ENT: No Symptoms Reported Respiratory: Cough, Shortness of Breath Cardiovascular: Chest Pain, Edema (LOWER EXTREMITY SWELLING ) Gastrointestinal: No Symptoms Reported Genitourinary: No Symptoms Reported Musculoskeletal: No Symptoms Reported Skin: No Symptoms Reported Neurological: Weakness - Physical Exam Vital Signs: Temperature 97.9 F Pulse Rate 62 Respiratory Rate 28 Blood Pressure [Left Arm] 134/61 Blood Pressure 119/57 O2 Sat by Pulse Oximetry 97 Oriented: Normal Eyes: Normal Ear: Normal Nose: Normal Throat: Normal Respiratory: Diminished Throughout Cardiovascular: Edema (BILATERAL LOWER EXTREMITY 1+ PITTING EDEMA ) : Normal Auscultation: Bowel Sounds: Normal Palpation: Normal Tenderness: Normal Skin: Normal Musculoskeletal: Normal Psychiatric: Normal Mood Description: Calm Affect: Normal Speech Pattern: Clear - Assessment/Plan (1) CHF (congestive heart failure) Qualifiers: Heart failure type: unspecified Heart failure chronicity: acute Qualified Code(s): I50.9 - Heart failure, unspecified Status: Acute Plan: ADMIT, SUPPLEMENTAL OXYGEN, LASIX 40MG IV BID, OTBS ACHS, AND HIS HOME MEDICATIONS OF ASPIRIN 325MG PO DAILY, COLACE 100MG PO DAILY, ROSUVASTATIN 10MG PO HS, METOPROLOL 50MG PO BID, GLIPIZIDE 2.5MG PO DAILY, AND NORVASC 10MG PO DAILY. ECHO, CEA LEVEL, PSA LEVEL, AND RESTRICT FLUIDS TO LESS THAN 1 LITER/DAY. (2) Acute dyspnea Status: Acute - Allergies Allergies/Adverse Reactions: Allergies Allergy/AdvReac Type Severity Reaction Status Date / Time No Known Drug Allergies Allergy Verified 05/07/19 14:19
[2020-10-13 19:06] LABS: CKMB % 1.7 % (<4); CREATINE KINASE 380 Units/L (39-308); TROPONIN I < 0.02 ng/mL (0-1.5)
[2020-10-13 19:08] LABS: CREATINE KINASE MB 6.5 ng/mL (0-4.0)
[2020-10-13] MEDS: CRESTOR TAB 10 MG PO SCH (20:27)
[2020-10-14 05:46] LABS: ABG ALLEN TEST POS; ABG BASE EXCESS 1.3 mmol/L (-2.0-2.0); ABG HCO3 25.9 mmol/L (22-26)
[2020-10-14 06:01] LABS: BILIRUBIN,URINE NEGATIVE (NEGATIVE); BLOOD/HEMOGLOBIN,URINE 3+ (NEGATIVE); GLUCOSE, URINE NEGATIVE (NEGATIVE); KETONES,URINE 2+ (NEGATIVE); LEUKOCYTE ESTERASE ,URINE 1+ (NEGATIVE); NITRITES,URINE NEGATIVE (NEGATIVE); PROTEIN,URINE 2+ (NEGATIVE); UROBILINOGEN,URINE NORMAL (NORMAL)
[2020-10-14 06:02] LABS: APPEARANCE,URINE CLEAR (CLEAR); COLOR,URINE YELLOW (YELLOW)
[2020-10-14 06:08] LABS: BASOPHILS # (AUTO) 0.1 X10^3/uL (0.0-0.1); BASOPHILS % (AUTO) 0.9 % (0.2-1.0); EOSINOPHILS # (AUTO) 0.2 x10^3/uL (0.0-0.2); EOSINOPHILS % (AUTO) 2.3 % (0.9-2.9); HEMATOCRIT 35.9 % (42.0-54.0); HEMOGLOBIN 12.3 g/dL (13.5-18.0); LYMPHOCYTES # (AUTO) 1.6 X10^3/uL (1.3-2.9); LYMPHOCYTES % (AUTO) 21.9 % (21.0-51.0); MEAN CORPUSCULAR HEMOGLOBIN 29.2 pg (27.0-34.0); MEAN CORPUSCULAR HGB CONC 34.3 g/dL (33.0-35.0); MEAN CORPUSCULAR VOLUME 85.2 fL (80.0-100.0); MEAN PLATELET VOLUME 8.7 fL (7.4-11.0); MONOCYTES # (AUTO) 0.6 x10^3/uL (0.3-0.8); MONOCYTES % (AUTO) 8.4 % (0.0-13.0); NEUTROPHILS # (AUTO) 4.8 x10^3/uL (2.2-4.8); NEUTROPHILS % (AUTO) 66.5 % (42.0-75.0); PLATELET COUNT 243 X10^3/uL (150.0-450.0); RED BLOOD COUNT 4.21 X10^6/uL (4.7-6.0); RED CELL DISTRIBUTION WIDTH 13.8 % (11.6-16.5); WHITE BLOOD COUNT 7.2 X10^3/uL (3.6-10.0)
[2020-10-14 06:09] LABS: BACTERIA,URINE 1+ /HPF (NEGATIVE); RBC,URINE 0-2 /HPF (0-3); SQUAMOUS EPITHELIAL CELL,UR MODERATE /HPF (NEGATIVE)
--- NOTE | 2020-10-14 06:09 | RAD ---
HISTORYSOBSTUDYCHEST, 1 [id number]/22/2021.TECHNIQUEAP view of the chestFINDINGSThe cardiac and mediastinal contours appear stable. Stable moderate right pleural effusion. No discernible pneumothorax. Associated right base opacity likely atelectasis.IMPRESSIONNo significant change.Electronically signed by: Dashawn Courtney (Oct 14, 2020 06:07:09)
[2020-10-14] MEDS: LASIX IVP SCH ×3 (06:24→16:25)
[2020-10-14 06:33] LABS: ALANINE AMINOTRANSFERASE 18 Units/L (12-78); ALBUMIN 3.9 g/dL (3.4-5.0); ALKALINE PHOSPHATASE 112 Units/L (46-116); ASPARTATE AMINO TRANSFERASE 26 Units/L (15-37); BLOOD UREA NITROGEN 25 mg/dL (7-18); CALCIUM 9.5 mg/dL (8.5-10.1); CARBON DIOXIDE 25.1 mmol/L (21-32); CHLORIDE 101 mmol/L (98-107); COR NA(FOR HYPERGLY) 141 mmol/L (136-145); SODIUM 140 mmol/L (136-145); TOTAL PROTEIN 8.1 g/dL (6.4-8.2); eGFR NON BLACK RACES 58 (>60)
[2020-10-14 07:07] LABS: CREATINE KINASE 419 Units/L (39-308); TROPONIN I < 0.02 ng/mL (0-1.5)
[2020-10-14 07:12] LABS: CKMB % 1.6 % (<4); CREATINE KINASE MB 6.6 ng/mL (0-4.0)
[2020-10-14] MEDS: GLUCOTROL XL 24-HR PO SCH (08:00)
[2020-10-14] MEDS ORDERED: PULMICORT NEB TX 0.5 MG NEB ONE (09:02)
[2020-10-14] MEDS: PULMICORT NEB TX 0.5 MG NEB SCH ×2 (09:03→20:10)
[2020-10-14] MEDS: XOPENEX 1.25 MG/3 ML NEBULE NEB SCH ×3 (09:48→20:10)
[2020-10-14] MEDS: LOPRESSOR TAB 50 MG PO SCH ×2 (10:00→20:48)
[2020-10-14] MEDS: NORVASC TAB 10 MG PO SCH (10:00)
[2020-10-14] MEDS: COLACE CAP 100 MG PO SCH (10:29)
[2020-10-14] MEDS: ECOTRIN TAB 325 MG PO SCH (10:29)
[2020-10-14] MEDS: K-DUR TAB 20 MEQ PO SCH ×2 (10:30→20:48)
--- NOTE | 2020-10-14 13:15 | PCM.PROG ---
Progress Note - Progress Note for Day of Date of Exam: 10/14/20 - Subjective Subjective: WAS ADMITTED FOR CHF AND ACUTE DYSPNEA. TODAY, HE IS ALERT AND ORIENTED, LYING IN BED ON MORNING ROUNDS. HE CONTINUES WITH COMPLAINTS OF SHORTNESS OF BREATH THIS MORNING. HE ALSO REPORTS INTERMITTENT, NON-PRODUCTIVE COUGH. ON EXAMINATION, HEART IS REGULAR IN RATE AND RHYTHM. BILATERAL LUNGS ARE NOTED WITH DIMINISHED LUNG SOUNDS THROUGHOUT. ABDOMEN IS ROUND, SOFT, AND NON- TENDER WITH NORMAL BOWEL SOUNDS NOTED IN ALL QUADRANTS. LOWER EXTREMITIES CONTINUE WITH 1+ PITTING EDEMA. HER VITALS THIS MORNING ARE: 97.7-84-28-96%-151/67. LABS WERE OBTAINED. ABNORMAL LAB VALUES INCLUDE THE FOLLOWING: RBC 4.63, HGB 13.4, HCT 39.4, D-DIMER 1.30, BUN 25, GLUCOSE 123, CREATINE KINASE 419, CK-MB 6.6, BNP 293. A CHEST XRAY WAS OBTAINED AND REVEALED: The cardiac and mediastinal contours appear stable. Stable moderate right pleural effusion. No discernible pneumothorax. Associated right base opacity likely atelectasis. ECHO REVEALED AN EJECTION FRACTION OF 60%, GRADE 1 IMPAIRED DIASTOLIC DYSFUNCTION. HE IS CURRENTLY RECEIVING LASIX 40MG IV BID, OTBS ACHS, ASPIRIN 325MG PO DAILY, COLACE 100MG PO DAILY, ROSUVASTATIN 10MG PO HS, METOPROLOL 50MG PO BID, GLIPIZIDE 2.5MG PO DAILY, AND NORVASC 10MG PO DAILY. TODAY, WE WILL ADD PULMICORT NEB TX BID AND XOPENEX NEB TX TID. OTHERWISE, WE WILL CONTINUE WITH CURRENT PLAN OF CARE. WE PLAN TO FOLLOW UP WITH AM LABS AND CONTINUE TO MONITOR. TIME SPENT ON CLINICAL ASSESSMENT, REVIEWING LABS AND IMAGING, DECISION MAKING, AND DOCUMENTATION GREATER THAN 75 MINUTES. - Past Medical Family Social History Past Med/Fam/Surg Hx: No changes since H&P Allergies: Allergies No Known Drug Allergies Allergy (Verified 05/07/19 14:19) - Review of Systems ROS: No change since H&P - Vital Signs and I&O's Vital Signs: Temperature 98.4 F Pulse Rate 77 Respiratory Rate 30 Blood Pressure [Left Arm] 134/61 Blood Pressure 162/72 O2 Sat by Pulse Oximetry 96 Intake and Output: Intake & Output 02/22/21 02/23/21 02/24/21 02/25/21 11:59 11:59 11:59 11:59 Intake Total 550 / 550 990 / 990 Output Total 300 / 300 1425 / 1425 Balance 250 / 250 -435 / -435 - Physical Exam Oriented: Normal Eyes: Normal Ear: Normal Nose: Normal Throat: Normal Respiratory: Diminished Cardiovascular: Edema (BILATERAL LOWER EXTREMITY 1+ PITTING EDEMA ) : Normal Auscultation: Bowel Sounds: Normal Palpation: Normal Tenderness: Normal Skin: Normal Musculoskeletal: Normal Psychiatric: Normal Mood Description: Calm Affect: Normal Speech Pattern: Clear - Laboratory and Diagnostics Result Diagrams: 10/14/20 05:18 10/14/20 05:18 Labs: Laboratory WBC 7.2 X10^3/uL (3.6-10.0) 10/14/20 05:18 RBC 4.21 X10^6/uL (4.7-6.0) L 10/14/20 05:18 Hgb 12.3 g/dL (13.5-18.0) L 10/14/20 05:18 Hct 35.9 % (42.0-54.0) L 10/14/20 05:18 MCV 85.2 fL (80.0-100.0) 10/14/20 05:18 MCH 29.2 pg (27.0-34.0) 10/14/20 05:18 MCHC 34.3 g/dL (33.0-35.0) 10/14/20 05:18 RDW 13.8 % (11.6-16.5) 10/14/20 05:18 Plt Count 243 X10^3/uL (150.0-450.0) 10/14/20 05:18 MPV 8.7 fL (7.4-11.0) 10/14/20 05:18 Neut % (Auto) 66.5 % (42.0-75.0) 10/14/20 05:18 Lymph % (Auto) 21.9 % (21.0-51.0) 10/14/20 05:18 [place] % (Auto) 8.4 % (0.0-13.0) 10/14/20 05:18 Eos % (Auto) 2.3 % (0.9-2.9) 10/14/20 05:18 Baso % (Auto) 0.9 % (0.2-1.0) 10/14/20 05:18 Neut # (Auto) 4.8 x10^3/uL (2.2-4.8) 10/14/20 05:18 Lymph # (Auto) 1.6 X10^3/uL (1.3-2.9) 10/14/20 05:18 [place] # (Auto) 0.6 x10^3/uL (0.3-0.8) 10/14/20 05:18 Eos # (Auto) 0.2 x10^3/uL (0.0-0.2) 10/14/20 05:18 Baso # (Auto) 0.1 X10^3/uL (0.0-0.1) 10/14/20 05:18 Absolute Nucleated RBC 0.1 /100WBC 10/14/20 05:18 PT 13.7 SECONDS (11.8-14.3) 10/12/20 21:46 INR Target Range - 10/12/20 21:46 INR 1.08 (0.8-1.3) 10/12/20 21:46 D-Dimer 1.30 ug/ml (0.0-0.57) H* 10/14/20 05:18 Sample Site Rr 10/14/20 05:30 ABG pH 7.420 (7.35-7.45) 10/14/20 05:30 ABG pCO2 40.0 mmHg (35.0-45.0) 10/14/20 05:30 ABG pO2 82.0 mmHg (80.0-100.0) 10/14/20 05:30 ABG HCO3 25.9 mmol/L (22-26) 10/14/20 05:30 ABG O2 Saturation 96.0 % (90-100) 10/14/20 05:30 ABG Base Excess 1.3 mmol/L (-2.0-2.0) 10/14/20 05:30 Dev Test Pos 10/14/20 05:30 A-a Gradient 225.0 mmHg 10/14/20 05:30 FiO2 50.0 10/14/20 05:30 Blood Gas Comments Gemma well 10/14/20 05:30 Sodium 140 mmol/L (136-145) 10/14/20 05:18 Corrected Sodium 141 mmol/L (136-145) 10/14/20 05:18 Potassium 3.9 mmol/L (3.5-5.1) 10/14/20 05:18 Chloride 101 mmol/L (98-107) 10/14/20 05:18 Carbon Dioxide 25.1 mmol/L (21-32) 10/14/20 05:18 BUN 25 mg/dL (7-18) H 10/14/20 05:18 Creatinine 1.30 mg/dL (0.70-1.30) 10/14/20 05:18 Est GFR (MDRD) Af Amer > 60 (>60) 10/14/20 05:18 Est GFR (MDRD) Non-Af 58 (>60) L 10/14/20 05:18 Glucose 123 mg/dL (65-99) H 10/14/20 05:18 POC Glucose (mg/dL) 176 mg/dL (65-99) H 10/14/20 11:56 Calcium 9.5 mg/dL (8.5-10.1) 10/14/20 05:18 Corrected Calcium TNP 10/14/20 05:18 Magnesium 2.3 mg/dL (1.7-2.9) 10/14/20 05:18 Total Bilirubin 0.80 mg/dL (0.2-1.0) 10/14/20 05:18 AST 26 Units/L (15-37) 10/14/20 05:18 ALT 18 Units/L (12-78) 10/14/20 05:18 Alkaline Phosphatase 112 Units/L (46-116) 10/14/20 05:18 Creatine Kinase 419 Units/L (39-308) H 10/14/20 05:18 CK-MB (CK-2) 6.6 ng/mL (0-4.0) H* 10/14/20 05:18 CK/CKMB % Calc 1.6 % (<4) 10/14/20 05:18 Troponin I < 0.02 ng/mL (0-1.5) 10/14/20 05:18 B-Natriuretic Peptide 293 pg/mL (0-79) H 10/14/20 05:18 Total Protein 8.1 g/dL (6.4-8.2) 10/14/20 05:18 Albumin 3.9 g/dL (3.4-5.0) 10/14/20 05:18 Globulin 4.2 g/dL (2.5-4.5) 10/14/20 05:18 Albumin/Globulin Ratio 0.9 Ratio (1.1-2.1) L 10/14/20 05:18 Total PSA 2.01 ng/mL (0.13-4.0) 10/13/20 10:32 Specimen Type Catherized urine 10/14/20 05:45 Urine Color Yellow (YELLOW) 10/14/20 05:45 Urine Appearance Clear (CLEAR) 10/14/20 05:45 Urine pH 5.0 (5.0 - 8.0) 10/14/20 05:45 Ur Specific [place] 1.020 (1.000-1.030) 10/14/20 05:45 Urine Protein 2+ (NEGATIVE) 10/14/20 05:45 Urine Glucose (UA) Negative (NEGATIVE) 10/14/20 05:45 Urine Ketones 2+ (NEGATIVE) 10/14/20 05:45 Urine Occult Blood 3+ (NEGATIVE) 10/14/20 05:45 Urine Nitrite Negative (NEGATIVE) 10/14/20 05:45 Urine Bilirubin Negative (NEGATIVE) 10/14/20 05:45 Urine Urobilinogen Normal (NORMAL) 10/14/20 05:45 Ur Leukocyte Esterase 1+ (NEGATIVE) 10/14/20 05:45 Urine RBC 0-2 /HPF (0-3) 10/14/20 05:45 Urine WBC 3-5 /HPF (0-5) 10/14/20 05:45 Ur Squamous Epith Cells Moderate /HPF (NEGATIVE) 10/14/20 05:45 Urine Bacteria 1+ /HPF (NEGATIVE) 10/14/20 05:45 Ur Culture Indicated? No/not indicated 10/14/20 05:45 SARS-CoV-2 (PCR) Negative (NEGATIVE) 10/12/20 22:44 Influenza Type A (PCR) Negative (NEGATIVE) 10/12/20 22:44 Influenza Type B (PCR) Negative (NEGATIVE) 10/12/20 22:44 RSV (PCR) Negative (NEGATIVE) 10/12/20 22:44 - Plan (1) CHF (congestive heart failure) Status: Acute Qualifiers: Heart failure type: unspecified Heart failure chronicity: acute Qualified Code(s): I50.9 - Heart failure, unspecified Plan: SUPPLEMENTAL OXYGEN, LASIX 40MG IV BID, OTBS ACHS, AND HIS HOME MEDICATIONS OF ASPIRIN 325MG PO DAILY, COLACE 100MG PO DAILY, ROSUVASTATIN 10MG PO HS, METOPROLOL 50MG PO BID, GLIPIZIDE 2.5MG PO DAILY, AND NORVASC 10MG PO DAILY. ECHO, CEA LEVEL, PSA LEVEL, AND RESTRICT FLUIDS TO LESS THAN 1 LITER/DAY. (2) Acute dyspnea Status: Acute
[2020-10-14] MEDS: CRESTOR TAB 10 MG PO SCH (20:48)
[2020-10-15] MEDS: GLUCOTROL XL 24-HR PO SCH (06:02)
[2020-10-15 06:07] LABS: BASOPHILS # (AUTO) 0.1 X10^3/uL (0.0-0.1); BASOPHILS % (AUTO) 0.9 % (0.2-1.0); EOSINOPHILS # (AUTO) 0.1 x10^3/uL (0.0-0.2); EOSINOPHILS % (AUTO) 1.6 % (0.9-2.9); HEMATOCRIT 33.7 % (42.0-54.0); HEMOGLOBIN 11.4 g/dL (13.5-18.0); LYMPHOCYTES # (AUTO) 1.5 X10^3/uL (1.3-2.9); LYMPHOCYTES % (AUTO) 20.1 % (21.0-51.0); MEAN CORPUSCULAR HEMOGLOBIN 28.9 pg (27.0-34.0); MEAN CORPUSCULAR HGB CONC 33.8 g/dL (33.0-35.0); MEAN CORPUSCULAR VOLUME 85.5 fL (80.0-100.0); MEAN PLATELET VOLUME 8.9 fL (7.4-11.0); MONOCYTES # (AUTO) 0.7 x10^3/uL (0.3-0.8); MONOCYTES % (AUTO) 9.4 % (0.0-13.0); PLATELET COUNT 240 X10^3/uL (150.0-450.0); RED BLOOD COUNT 3.94 X10^6/uL (4.7-6.0); WHITE BLOOD COUNT 7.4 X10^3/uL (3.6-10.0)
[2020-10-15] MEDS: XOPENEX 1.25 MG/3 ML NEBULE NEB SCH ×3 (06:30→20:40)
[2020-10-15 06:34] LABS: ALANINE AMINOTRANSFERASE 23 Units/L (12-78); ALBUMIN 3.7 g/dL (3.4-5.0); ALKALINE PHOSPHATASE 103 Units/L (46-116); ASPARTATE AMINO TRANSFERASE 23 Units/L (15-37); BLOOD UREA NITROGEN 31 mg/dL (7-18); CALCIUM 9.3 mg/dL (8.5-10.1); CARBON DIOXIDE 25.1 mmol/L (21-32); CHLORIDE 102 mmol/L (98-107); CREATININE 1.23 mg/dL (0.70-1.30); SODIUM 141 mmol/L (136-145); TOTAL PROTEIN 7.6 g/dL (6.4-8.2); eGFR NON BLACK RACES > 60 (>60)
--- NOTE | 2020-10-15 07:19 | RAD ---
HISTORYSOBSTUDYCHEST, 1 [id number]/2021.TECHNIQUEAP view of the chestFINDINGSThe cardiac and mediastinal contours appear stable. Mild worsening of mid and lower lung predominant hazy opacities. Bilateral pleural effusions. No discernible pneumothorax Soft tissue attenuation limits evaluation.IMPRESSIONMild worsening of mid and lower lung hazy opacities may represent worsening layering pleural effusions but pneumonia is not excluded.Electronically signed by: Dashawn Courtney (Oct 15, 2020 07:18:29)
[2020-10-15] MEDS: PULMICORT NEB TX 0.5 MG NEB SCH ×2 (08:43→20:40)
[2020-10-15] MEDS: LASIX IVP SCH ×2 (09:59→17:34)
[2020-10-15] MEDS: COLACE CAP 100 MG PO SCH ×2 (10:00→10:08)
[2020-10-15] MEDS: K-DUR TAB 20 MEQ PO SCH ×3 (10:00→21:19)
[2020-10-15] MEDS: LOPRESSOR TAB 50 MG PO SCH ×3 (10:00→21:19)
[2020-10-15] MEDS: ECOTRIN TAB 325 MG PO SCH ×2 (10:00→10:06)
[2020-10-15] MEDS: NORVASC TAB 10 MG PO SCH ×2 (10:00→10:07)
[2020-10-15] MEDS ORDERED: LASIX IVP ONE (10:39)
[2020-10-15] MEDS ORDERED: NS 100 ML IV 100 ML IV ONE (10:57)
--- NOTE | 2020-10-15 11:04 | PCM.PROG ---
Progress Note - Progress Note for Day of Date of Exam: 10/15/20 - Subjective Subjective: WAS ADMITTED FOR CHF AND ACUTE DYSPNEA. TODAY, HE IS ALERT AND ORIENTED, LYING IN BED ON MORNING ROUNDS. HE REPORTS INCREASED SHORTNESS OF BREATH THIS MORNING AND ALSO CONTINUES WITH AN INTERMITTENT, NON-PRODUCTIVE COUGH. ON EXAMINATION, HEART IS REGULAR IN RATE AND RHYTHM. BILATERAL LUNGS ARE NOTED WITH DIMINISHED LUNG SOUNDS THROUGHOUT. ABDOMEN IS ROUND, SOFT, AND NON- TENDER WITH NORMAL BOWEL SOUNDS NOTED IN ALL QUADRANTS. LOWER EXTREMITIES CONTINUE WITH 1+ PITTING EDEMA. HIS VITALS THIS MORNING ARE: 98.4-84-32-96%-153/70. LABS WERE OBTAINED. ABNORMAL LAB VALUES INCLUDE THE FOLLOWING: RBC 3.94, HGB 11.4, HCT 33.7, BUN 31, GLUCOSE 110, BNP 350. A CHEST XRAY WAS OBTAINED AND REVEALED: Mild worsening of mid and lower lung hazy opacities may represent worsening layering pleural effusions but pneumonia is not excluded. ECHO REVEALED AN EJECTION FRACTION OF 60%, GRADE 1 IMPAIRED DIASTOLIC DYSFUNCTION. HE IS CURRENTLY RECEIVING LASIX 40MG IV BID, XOPENEX AND PULMICORT NEB TX, OTBS ACHS, ASPIRIN 325MG PO DAILY, COLACE 100MG PO DAILY, ROSUVASTATIN 10MG PO HS, METOPROLOL 50MG PO BID, GLIPIZIDE 2.5MG PO DAILY, AND NORVASC 10MG PO DAILY. TODAY, WE WILL INCREASE LASIX TO 80MG IV BID AND ADD LEVAQUIN 500MG IV DAILY. WE WILL OBTAIN AN ABG, SERIAL CARDIAC ENZYMES AND EKGS, AND ORDER FOR HIM TO WEAR THE BIPAP THROUGHOUT THE DAY. OTHERWISE, WE WILL CONTINUE WITH CURRENT PLAN OF CARE. WE PLAN TO FOLLOW UP WITH AM LABS AND CONTINUE TO MONITOR. TIME SPENT ON CLINICAL ASSESSMENT, REVIEWING LABS AND IMAGING, DECISION MAKING, AND DOCUMENTATION GREATER THAN 75 MINUTES. - Past Medical Family Social History Past Med/Fam/Surg Hx: No changes since H&P Allergies: Allergies No Known Drug Allergies Allergy (Verified 05/07/19 14:19) - Review of Systems ROS: No change since H&P - Vital Signs and I&O's Vital Signs: Temperature 98.4 F Pulse Rate 81 Respiratory Rate 32 Blood Pressure [Left Arm] 134/61 Blood Pressure 153/70 O2 Sat by Pulse Oximetry 96 Intake and Output: Intake & Output 02/2210/13/20 10/14/20 10/15/20 11:59 11:59 11:59 11:59 Intake Total 550 / 550 990 / 990 520 / 520 Output Total 300 / 300 1425 / 1425 800 / 800 Balance 250 / 250 -435 / -435 -280 / -280 - Physical Exam Oriented: Normal Eyes: Normal Ear: Normal Nose: Normal Throat: Normal Respiratory: Diminished Cardiovascular: Edema (BILATERAL LOWER EXTREMITY 1+ PITTING EDEMA ) : Normal Auscultation: Bowel Sounds: Normal Tenderness: Normal Skin: Normal Musculoskeletal: Normal Psychiatric: Normal Mood Description: Calm Affect: Normal Speech Pattern: Clear, Appropriate - Laboratory and Diagnostics Result Diagrams: 10/15/20 05:16 10/15/20 05:16 Labs: Laboratory WBC 7.4 X10^3/uL (3.6-10.0) 10/15/20 05:16 RBC 3.94 X10^6/uL (4.7-6.0) L 10/15/20 05:16 Hgb 11.4 g/dL (13.5-18.0) L 10/15/20 05:16 Hct 33.7 % (42.0-54.0) L 10/15/20 05:16 MCV 85.5 fL (80.0-100.0) 10/15/20 05:16 MCH 28.9 pg (27.0-34.0) 10/15/20 05:16 MCHC 33.8 g/dL (33.0-35.0) 10/15/20 05:16 RDW 14.0 % (11.6-16.5) 10/15/20 05:16 Plt Count 240 X10^3/uL (150.0-450.0) 10/15/20 05:16 MPV 8.9 fL (7.4-11.0) 10/15/20 05:16 Neut % (Auto) 68.0 % (42.0-75.0) 10/15/20 05:16 Lymph % (Auto) 20.1 % (21.0-51.0) L 10/15/20 05:16 [place] % (Auto) 9.4 % (0.0-13.0) 10/15/20 05:16 Eos % (Auto) 1.6 % (0.9-2.9) 10/15/20 05:16 Baso % (Auto) 0.9 % (0.2-1.0) 10/15/20 05:16 Neut # (Auto) 5.0 x10^3/uL (2.2-4.8) H 10/15/20 05:16 Lymph # (Auto) 1.5 X10^3/uL (1.3-2.9) 10/15/20 05:16 [place] # (Auto) 0.7 x10^3/uL (0.3-0.8) 10/15/20 05:16 Eos # (Auto) 0.1 x10^3/uL (0.0-0.2) 10/15/20 05:16 Baso # (Auto) 0.1 X10^3/uL (0.0-0.1) 10/15/20 05:16 Absolute Nucleated RBC 0.0 /100WBC 10/15/20 05:16 PT 13.7 SECONDS (11.8-14.3) 10/12/20 21:46 INR Target Range - 10/12/20 21:46 INR 1.08 (0.8-1.3) 10/12/20 21:46 D-Dimer 1.30 ug/ml (0.0-0.57) H* 10/14/20 05:18 Sample Site Rr 10/14/20 05:30 ABG pH 7.420 (7.35-7.45) 10/14/20 05:30 ABG pCO2 40.0 mmHg (35.0-45.0) 10/14/20 05:30 ABG pO2 82.0 mmHg (80.0-100.0) 10/14/20 05:30 ABG HCO3 25.9 mmol/L (22-26) 10/14/20 05:30 ABG O2 Saturation 96.0 % (90-100) 10/14/20 05:30 ABG Base Excess 1.3 mmol/L (-2.0-2.0) 10/14/20 05:30 Dev Test Pos 10/14/20 05:30 A-a Gradient 225.0 mmHg 10/14/20 05:30 FiO2 50.0 10/14/20 05:30 Blood Gas Comments Gemma well 10/14/20 05:30 Sodium 141 mmol/L (136-145) 10/15/20 05:16 Corrected Sodium TNP 10/15/20 05:16 Potassium 3.8 mmol/L (3.5-5.1) 10/15/20 05:16 Chloride 102 mmol/L (98-107) 10/15/20 05:16 Carbon Dioxide 25.1 mmol/L (21-32) 10/15/20 05:16 BUN 31 mg/dL (7-18) H 10/15/20 05:16 Creatinine 1.23 mg/dL (0.70-1.30) 10/15/20 05:16 Est GFR (MDRD) Af Amer > 60 (>60) 10/15/20 05:16 Est GFR (MDRD) Non-Af > 60 (>60) 10/15/20 05:16 Glucose 110 mg/dL (65-99) H 10/15/20 05:16 POC Glucose (mg/dL) 98 mg/dL (65-99) 10/15/20 05:16 Calcium 9.3 mg/dL (8.5-10.1) 10/15/20 05:16 Corrected Calcium TNP 10/15/20 05:16 Magnesium 2.3 mg/dL (1.7-2.9) 10/14/20 05:18 Total Bilirubin 0.80 mg/dL (0.2-1.0) 10/15/20 05:16 AST 23 Units/L (15-37) 10/15/20 05:16 ALT 23 Units/L (12-78) 10/15/20 05:16 Alkaline Phosphatase 103 Units/L (46-116) 10/15/20 05:16 Creatine Kinase 419 Units/L (39-308) H 10/14/20 05:18 CK-MB (CK-2) 6.6 ng/mL (0-4.0) H* 10/14/20 05:18 CK/CKMB % Calc 1.6 % (<4) 10/14/20 05:18 Troponin I < 0.02 ng/mL (0-1.5) 10/14/20 05:18 B-Natriuretic Peptide 350 pg/mL (0-79) H 10/15/20 05:16 Total Protein 7.6 g/dL (6.4-8.2) 10/15/20 05:16 Albumin 3.7 g/dL (3.4-5.0) 10/15/20 05:16 Globulin 3.9 g/dL (2.5-4.5) 10/15/20 05:16 Albumin/Globulin Ratio 0.9 Ratio (1.1-2.1) L 10/15/20 05:16 Total PSA 2.01 ng/mL (0.13-4.0) 10/13/20 10:32 Specimen Type Catherized urine 10/14/20 05:45 Urine Color Yellow (YELLOW) 10/14/20 05:45 Urine Appearance Clear (CLEAR) 10/14/20 05:45 Urine pH 5.0 (5.0 - 8.0) 10/14/20 05:45 Ur Specific [place] 1.020 (1.000-1.030) 10/14/20 05:45 Urine Protein 2+ (NEGATIVE) 10/14/20 05:45 Urine Glucose (UA) Negative (NEGATIVE) 10/14/20 05:45 Urine Ketones 2+ (NEGATIVE) 10/14/20 05:45 Urine Occult Blood 3+ (NEGATIVE) 10/14/20 05:45 Urine Nitrite Negative (NEGATIVE) 10/14/20 05:45 Urine Bilirubin Negative (NEGATIVE) 10/14/20 05:45 Urine Urobilinogen Normal (NORMAL) 10/14/20 05:45 Ur Leukocyte Esterase 1+ (NEGATIVE) 10/14/20 05:45 Urine RBC 0-2 /HPF (0-3) 10/14/20 05:45 Urine WBC 3-5 /HPF (0-5) 10/14/20 05:45 Ur Squamous Epith Cells Moderate /HPF (NEGATIVE) 10/14/20 05:45 Urine Bacteria 1+ /HPF (NEGATIVE) 10/14/20 05:45 Ur Culture Indicated? No/not indicated 10/14/20 05:45 SARS-CoV-2 (PCR) Negative (NEGATIVE) 10/12/20 22:44 Influenza Type A (PCR) Negative (NEGATIVE) 10/12/20 22:44 Influenza Type B (PCR) Negative (NEGATIVE) 10/12/20 22:44 RSV (PCR) Negative (NEGATIVE) 10/12/20 22:44 - Plan (1) CHF (congestive heart failure) Status: Acute Qualifiers: Heart failure type: unspecified Heart failure chronicity: acute Qualified Code(s): I50.9 - Heart failure, unspecified Plan: SUPPLEMENTAL OXYGEN, LEVAQUIN 500MG IV DAILY, LASIX 80MG IV BID, OTBS ACHS, AND HIS HOME MEDICATIONS OF ASPIRIN 325MG PO DAILY, COLACE 100MG PO DAILY, ROSUVASTATIN 10MG PO HS, METOPROLOL 50MG PO BID, GLIPIZIDE 2.5MG PO DAILY, AND NORVASC 10MG PO DAILY. ECHO, CEA LEVEL, PSA LEVEL, AND RESTRICT FLUIDS TO LESS THAN 1 LITER/DAY. (2) Acute dyspnea Status: Acute
[2020-10-15 11:20] LABS: ABG BASE EXCESS 3.3 mmol/L (-2.0-2.0); ABG HCO3 27.8 mmol/L (22-26)
[2020-10-15 11:21] LABS: ABG ALLEN TEST POS
[2020-10-15 11:39] LABS: CKMB % 1.1 % (<4); CREATINE KINASE 466 Units/L (39-308); TROPONIN I < 0.02 ng/mL (0-1.5)
[2020-10-15 11:41] LABS: CREATINE KINASE MB 5.2 ng/mL (0-4.0)
[2020-10-15] MEDS: LEVAQUIN PREMIX IV 500 MG 500 MG/100 ML BAG IV SCH (11:45)
[2020-10-15 15:48] LABS: CKMB % 1.2 % (<4); CREATINE KINASE 438 Units/L (39-308); TROPONIN I < 0.02 ng/mL (0-1.5)
[2020-10-15 15:51] LABS: CREATINE KINASE MB 5.3 ng/mL (0-4.0)
[2020-10-15] MEDS: CRESTOR TAB 10 MG PO SCH (21:19)
[2020-10-16 05:12] LABS: BASOPHILS # (AUTO) 0.1 X10^3/uL (0.0-0.1); BASOPHILS % (AUTO) 0.9 % (0.2-1.0); EOSINOPHILS # (AUTO) 0.2 x10^3/uL (0.0-0.2); HEMATOCRIT 36.2 % (42.0-54.0); HEMOGLOBIN 12.1 g/dL (13.5-18.0); LYMPHOCYTES # (AUTO) 1.2 X10^3/uL (1.3-2.9); LYMPHOCYTES % (AUTO) 19.6 % (21.0-51.0); MEAN CORPUSCULAR HEMOGLOBIN 28.5 pg (27.0-34.0); MEAN CORPUSCULAR HGB CONC 33.4 g/dL (33.0-35.0); MEAN CORPUSCULAR VOLUME 85.5 fL (80.0-100.0); MEAN PLATELET VOLUME 8.8 fL (7.4-11.0); MONOCYTES # (AUTO) 0.7 x10^3/uL (0.3-0.8); MONOCYTES % (AUTO) 11.2 % (0.0-13.0); NEUTROPHILS % (AUTO) 65.3 % (42.0-75.0); PLATELET COUNT 252 X10^3/uL (150.0-450.0); RED BLOOD COUNT 4.24 X10^6/uL (4.7-6.0); RED CELL DISTRIBUTION WIDTH 13.9 % (11.6-16.5); WHITE BLOOD COUNT 6.1 X10^3/uL (3.6-10.0)
[2020-10-16] MEDS: XOPENEX 1.25 MG/3 ML NEBULE NEB SCH (05:26)
[2020-10-16 05:32] LABS: ALANINE AMINOTRANSFERASE 24 Units/L (12-78); ALBUMIN 3.4 g/dL (3.4-5.0); ALKALINE PHOSPHATASE 102 Units/L (46-116); ASPARTATE AMINO TRANSFERASE 25 Units/L (15-37); BLOOD UREA NITROGEN 22 mg/dL (7-18); CALCIUM 8.9 mg/dL (8.5-10.1); CHLORIDE 102 mmol/L (98-107); CREATININE 1.15 mg/dL (0.70-1.30); SODIUM 141 mmol/L (136-145); TOTAL PROTEIN 7.5 g/dL (6.4-8.2); eGFR NON BLACK RACES > 60 (>60)
--- NOTE | 2020-10-16 06:16 | RAD ---
HISTORYShortness of breathSTUDYChest AP [id number]/25/2021FINDINGSThe heart is within normal limits in size. The enrique are normal. The lung rome are now clear. No pleural effusions are identified. Bony thorax is unremarkable.IMPRESSIONLungs now clearElectronically signed by: STACI NICHOLS (Oct 16, 2020 06:14:06)
[2020-10-16] MEDS: GLUCOTROL XL 24-HR PO SCH (06:35)
[2020-10-16] MEDS: PULMICORT NEB TX 0.5 MG NEB SCH (08:40)
[2020-10-16] MEDS: LEVAQUIN PREMIX IV 500 MG 500 MG/100 ML BAG IV SCH (09:23)
[2020-10-16] MEDS: LASIX IVP SCH (09:23)
[2020-10-16] MEDS: ECOTRIN TAB 325 MG PO SCH (09:24)
[2020-10-16] MEDS: LOPRESSOR TAB 50 MG PO SCH (09:24)
[2020-10-16] MEDS: K-DUR TAB 20 MEQ PO SCH (09:24)
[2020-10-16] MEDS: NORVASC TAB 10 MG PO SCH (09:24)
[2020-10-16] MEDS: COLACE CAP 100 MG PO SCH (09:24)
[2020-10-16 12:19] VITALS: BP 129/68
== END 2020-10-16 13:20 | disposition home or self-care (01) | DRG 291 ==
LOC: OBS 19:17 → ER 19:17 → OBS 10-13 03:26 → MED/SURG 10-13 17:02
PROVIDERS: ADMIT Internal Medicine; ATTEND Internal Medicine
DX: R06.02 Shortness of breath; R79.1 Abnormal coagulation profile; J90 Pleural effusion, not elsewhere classified; U07.1 COVID-19; Z20.822 Contact with and (suspected) exposure to COVID-19; E11.9 Type 2 diabetes mellitus without complications; I50.9 Heart failure, unspecified; R79.82 Elevated C-reactive protein (CRP); R79.89 Other specified abnormal findings of blood chemistry; I11.0 Hypertensive heart disease with heart failure; E78.5 Hyperlipidemia, unspecified; R82.998 Other abnormal findings in urine